=== PATIENT | male | born 1985 | race Caucasian/White ===

== ENCOUNTER 2019-01-18 15:35 | Emergency (ER) | payer BC, OTHER ==
[2019-01-18] MEDS ORDERED: oxyCODONE/Acetamin 5/325 MG* TAB PO ONE (16:01)
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
[2019-01-18] MEDS ORDERED: Lidocaine 2% EPI 1:200000 MPF* 10 ML VIAL INJ ONE (16:13)
[2019-01-18] MEDS ORDERED: Lidocaine 2% w/ EPI 1:200,000* 20 ML SDV VIAL ONE (16:31)
[2019-01-18 19:09] VITALS: BP 122/71
== END 2019-01-18 19:08 | disposition home or self-care (01) ==
LOC: ED 15:35
DX: S52.572A Other intraarticular fracture of lower end of left radius, initial encounter for closed fracture (principal); S52.615A Nondisplaced fracture of left ulna styloid process, initial encounter for closed fracture; V86.56XA Driver of dirt bike or motor/cross bike injured in nontraffic accident, initial encounter; Y92.9 Unspecified place or not applicable
CPT/HCPCS: 99282; A9270-GY

== ENCOUNTER → 2019-01-28 | Day surgery (SDC) | payer BC ==
[~2019-01-28] MED LIST: Acetaminophen IV 1GM/100ML * 1,000 MG/100 ML VIAL IVPB ONE; Acetaminophen IV 1GM/100ML * 100 ML ONE; Buffered Lidocaine 1% SYRIN* 1 ML/SYRINGE INTRADERM ONE; Bupivacaine 0.5% SDV PF* 30ML VIAL ONE; Dexamethasone IV* 4 MG/ML 1 ML (4 MG) IV SLOW PU ONE; Famotidine IV* 10 MG/ML 2 ML (20 mg) IV ONE; Ketorolac INJ* 30 MG/ML 1 ML VIAL IV PRN; Ketorolac INJ* 30 MG/ML 1 ML VIAL ONE; Lactated Ringers 1000 ML Bag* 1,000 ML IV SCH; Lidocaine 2% PF * 5 ML VIAL ONE; Midazolam* 1 MG/ML 2 ML VIAL (2 MG) ONE; Naloxone* 0.4 MG/ML 1 ML VIAL IV PRN; Propofol* 10 MG/ML 20 ML BTL ONE; ceFAZolin 2 GM in NS PREMIX(*) 2 GM/100 ML BAG IVPB ONE; fentaNYL* 50 MCG/ML 2 ML VIAL (100 MCG VIAL) ONE; traMADol TAB* 50 MG ONE
[2019-01-28] MEDS: fentaNYL* 50 MCG/ML 2 ML VIAL (100 MCG VIAL) IV PRN ×3 (18:30→19:21)
[2019-01-28 20:30] VITALS: BP 132/70
--- NOTE | 2019-01-31 21:04 | OP ---
DATE OF OPERATION: 01/28/19 - [facility] DATE OF : 87 SURGEON: Jamshid Morel MD. NUCLEAR TECHNICIAN: PARISA Wilkins. An assistant maintenance manager was needed for the entirety of the procedure to aid in positioning of the arm and retraction. ANESTHESIOLOGIST: Dr. Lund. ANESTHESIA: General. PRE-OP DIAGNOSIS: Left intraarticular multifragmentary distal radius fracture. POST-OP DIAGNOSIS: Left intraarticular multifragmentary distal radius fracture. OPERATIVE PROCEDURE: Open reduction internal fixation of left intraarticular distal radius fracture, greater than 3 fragments. INDICATIONS: Mr. Rodriguez is 33 years old. He has a very distal and intraarticular distal radius fracture. On the ulnar aspect, the fracture line does become quite volar. I had brought in a [employer] distal radius rim plate to assist with the fixation of the fracture. He understands the risks and benefits including the risks of stiffness, malunion, persistent pain including ulnar- sided wrist pain after surgery. He wishes to proceed. ESTIMATED BLOOD LOSS: 2 mL. COMPLICATIONS: None. FINDINGS: See above and below. DESCRIPTION OF PROCEDURE: Kev was seen in the preoperative holding area. The correct site, side, and procedure were identified. We came back to the operating room. The arm was prepped and draped in the usual fashion and time- out was performed. I made a longitudinal incision over the volar aspect of the FCR tendon. Dissection was carried down. The tendon sheath was released. The tendon was retracted ulnarly. The subsheath was released. The pronator quadratus was released just off the radial aspect and T'd back transversally right at the watershed line. The fracture line was identified. Once I had reflected the pronator quadratus and I could see all the way over to the ulnar aspect of the volar aspect of the distal radius, I placed a baby Hohmann on the metaphyseal portion of the distal radius to assist in correcting the radial translation. I then placed the hand in 10 pounds of traction using the [employer] hand zavala. The distal radius was reduced, correcting both the translation as well as volar tilt. I then selected my [employer] volar rim plate. The 2 tabs on the end of the plate were bent down to match the curvature over the watershed line. The plate was placed into position, pinned, and the alignment of the plate was confirmed as well as the position on the ulnar aspect of the bone was confirmed under mini C-arm fluoroscopy. I then placed the cortical screw in the oblong hole proximally. I then used a cortical screw distally to get good plate to bone apposition on the ulnar aspect of the distal radius distally. Pins had been removed as I switched provisional fixation for definitive fixation. I then placed locking screws distally. The cortical screw distally was switched out for a locking screw. An additional cortical and a locking screw were placed proximally. I confirmed the alignment and the plate placement on mini C- arm fluoroscopy. Additionally, I had placed the two 1.5 mm cortical screws in the distal holes in the distal phalanges of the plate. At this point, everything was looking good. The alignment and everything was confirmed on mini C-arm fluoroscopy. The wound was irrigated out. The pronator was repaired with 3-0 Vicryl suture. The skin was closed with 4-0 Monocryl suture and Steri- Strips. 0.25% Marcaine was infiltrated all about the operative area. A short-arm splint with both dorsal and volar slabs was applied, and he was taken to the recovery room in stable condition. [id number]/[facility] #: [id number]
== END | disposition home or self-care (01) ==
LOC: OR 12:26
PROVIDERS: ATTEND Orthopaedic Surgery Hand Surgery
DX: S52.572A Other intraarticular fracture of lower end of left radius, initial encounter for closed fracture (principal); V86.56XA Driver of dirt bike or motor/cross bike injured in nontraffic accident, initial encounter; Y92.9 Unspecified place or not applicable
CPT/HCPCS: 76000; A9270-GY; C1713; J0690; J1885; J2250; J2704; J3010; J3490